=== PATIENT | male | born 1970 ===

== ENCOUNTER 2018-04-07 05:10 | Day surgery (SDC) | payer OTHER ==
[~2018-04-07 05:10] MED LIST: ASA81 MG PO; CLONAZEPAM1 MG PO; [UNRECOGNIZED DRUG - OTHER] PO
== END 2018-04-07 14:20 | disposition home or self-care (01) ==
LOC: CIR.AMB 05:10
DX: K60.1 Chronic anal fissure (principal); K62.4 Stenosis of anus and rectum; K64.5 Perianal venous thrombosis; K59.09 Other constipation